=== PATIENT | female | born 1990 | race Hispanic/Latino ===

== ENCOUNTER → 2016-12-12 | Outpatient (CLI) | payer OTHER ==
--- NOTE | 2016-12-13 08:26 | REP ---
Left foot complete: 12/12/2016. Clinical history: Trauma. Pain in the left mid foot and arch. Findings: Four views are provided. Small plantar calcaneal spur study performed. Subtalar joints, calcaneus, talus and tarsal bones intact. No fracture, subluxation and the metatarsals and phalanges are without fracture or focal lesion. No avulsion. Soft tissue swelling noted. Impression: 1. Some soft tissue swelling about the foot without visible or displaced fracture or acute bony finding. There is a small plantar calcaneal spur developing. Signed by Junior Sun MD 12/12/2016 08:00 P
--- NOTE | 2016-12-13 08:54 | REP ---
RIGHT KNEE, COMPLETE: 12/12/2016. Clinical history. Right knee pain, trauma. Findings: Five views are provided. There is no patellar subluxation on the sunrise view. I see no definite joint effusion. There is no fracture, loose body or osteochondral defect. Impression: 1. No visible or displaced fracture, avulsion, loose body, osteochondral defect or other significant finding. Signed by Junior Sun MD 12/13/2016 11:16 A
== END ==
LOC: M LRY 19:17
PROVIDERS: ATTEND Nurse Practitioner Family
DX: S99.922A Unspecified injury of left foot, initial encounter (principal); S89.91XA Unspecified injury of right lower leg, initial encounter; M77.32 Calcaneal spur, left foot; X58.XXXA Exposure to other specified factors, initial encounter; Y93.9 Activity, unspecified; Y92.9 Unspecified place or not applicable; Y99.8 Other external cause status
CPT/HCPCS: 73564; 73630; G0463

== ENCOUNTER → 2017-05-19 | Outpatient (CLI) | payer OTHER ==
[~2017-05-19] MED LIST: PROHANCE 279.3MG/ML 15ML VIAL (A9576) As Ordered; PROHANCE 279.3MG/ML 5ML VIAL (A9576) As Ordered
== END ==
LOC: M RAD 15:26
DX: M25.551 Pain in right hip (principal); M79.651 Pain in right thigh; Z85.830 Personal history of malignant neoplasm of bone; Z92.3 Personal history of irradiation
CPT/HCPCS: A9576